=== PATIENT | male | born 1985 | race Caucasian/White ===

== ENCOUNTER 2016-11-19 15:29 | Emergency (ER) | payer MEDICAID ==
[~2016-11-19] VITALS: Ht 188 cm; Wt 95.1 kg
[2016-11-19 15:31] VITALS: BP 127/83
[2016-11-19] MEDS ORDERED: LIDOCAINE 1%, 20ML ONE (15:57)
[2016-11-19] MEDS ORDERED: LIDOCAINE 1%, 20ML SQ ONE (16:00)
== END 2016-11-19 16:25 | disposition home or self-care (01) ==
LOC: ED 16:19
DX: L02.415 Cutaneous abscess of right lower limb (principal)
CPT/HCPCS: 10060

== ENCOUNTER 2017-02-20 18:05 | Emergency (ER) | payer MEDICAID ==
[~2017-02-20] VITALS: Ht 188 cm; Wt 95.0 kg
[2017-02-20 18:09] VITALS: BP 158/82
[2017-02-20] MEDS ORDERED: ONDANSETRON ODT 4 MG ONE (18:54)
[2017-02-20] MEDS ORDERED: ONDANSETRON ODT 4 MG PO ONE (19:00)
== END 2017-02-20 19:04 | disposition home or self-care (01) ==
LOC: ED 18:58
DX: F11.23 Opioid dependence with withdrawal (principal); F17.210 Nicotine dependence, cigarettes, uncomplicated
CPT/HCPCS: 99283; Q0162

== ENCOUNTER 2017-09-27 10:19 | Emergency (ER) | payer MEDICAID ==
[~2017-09-27] VITALS: Ht 188 cm; Wt 88.6 kg
[2017-09-27] MEDS ORDERED: KETOROLAC 30 MG/1 ML ONE (11:05)
[2017-09-27 11:19] LABS: MICROSCOPIC NOT IND
[2017-09-27 11:21] LABS: CULTURE INDICATED? NO
[2017-09-27] MEDS ORDERED: KETOROLAC 60 MG/2 ML IM ONE (11:30)
[2017-09-27] MEDS ORDERED: KETOROLAC 30 MG/1 ML IM ONE (11:30)
[2017-09-27 11:49] LABS: BASOPHILS # (AUTO) 0.02 x10^3/uL (0-0.1); BASOPHILS % (AUTO) 0 % (0-1); EOSINOPHILS # (AUTO) 0.01 x10^3/uL (0-0.4); EOSINOPHILS % (AUTO) 0 % (1-7); LYMPHOCYTES # (AUTO) 0.87 x10^3/uL (1-3.4); LYMPHOCYTES % (AUTO) 11 % (22-44); MD NO; MEAN CORPUSCULAR HEMOGLOBIN 28.1 pg (27.5-34.5); MEAN CORPUSCULAR HGB CONC 33.3 g/dL (33.2-36.2); MEAN CORPUSCULAR VOLUME 84.3 fL (81-97); MONOCYTES # (AUTO) 0.44 x10^3/uL (0.2-0.8); MONOCYTES % (AUTO) 5 % (2-9); NEUTROPHILS # (AUTO) 6.77 x10^3/uL (1.8-6.8); NEUTROPHILS % (AUTO) 84 % (42-75); PLATELET COUNT 345 x10^3/uL (130-400); RED BLOOD COUNT 4.82 x10^6/uL (4.38-5.82); RED CELL DISTRIBUTION WIDTH 14.1 % (9.4-14.8)
[2017-09-27 12:05] VITALS: BP 132/68
== END 2017-09-27 12:07 | disposition home or self-care (01) ==
LOC: ED 12:00
DX: L04.1 Acute lymphadenitis of trunk (principal); R30.0 Dysuria; F17.200 Nicotine dependence, unspecified, uncomplicated
CPT/HCPCS: 36415; 76857; 81003; 85025; 96372; 99285; J1885

== ENCOUNTER 2017-09-30 20:21 | Emergency (ER) | payer MEDICAID ==
[~2017-09-30] VITALS: Ht 188 cm; Wt 90.0 kg
[2017-09-30 20:26] VITALS: BP 139/75
[2017-09-30] MEDS ORDERED: SULFAMETH./TRIMETHOPRIM DS 800MG/160MG TABLET PO ONE (21:00)
[2017-09-30] MEDS ORDERED: OXYcodone/APAP 5/325MG TABLET PO ONE (21:00)
[2017-09-30] MEDS ORDERED: CEFAZOLIN 1,000 MG IM ONE (21:00)
[2017-09-30] MEDS ORDERED: LIDOCAINE 2%, 20ML SQ ONE (21:00)
[2017-09-30] MEDS ORDERED: DIPH,PERTUSS(ACELL),TET VAC/PF 0.5 ML IM-VACC ONE ×2 (21:00→21:23)
[2017-09-30] MEDS ORDERED: OXYcodone/APAP 5/325MG TABLET ONE (21:22)
[2017-09-30] MEDS ORDERED: CEFAZOLIN 1,000 MG ONE (21:22)
[2017-09-30] MEDS ORDERED: SULFAMETH./TRIMETHOPRIM DS 800MG/160MG TABLET ONE (21:22)
[2017-09-30] MEDS ORDERED: LIDOCAINE-MPF 2% ,5ML ONE (21:22)
== END 2017-09-30 22:16 | disposition home or self-care (01) ==
LOC: ED 21:02
DX: L02.416 Cutaneous abscess of left lower limb (principal); F41.9 Anxiety disorder, unspecified
CPT/HCPCS: 10060; 90471; 90715; 96372; 99284; J0690; J3490

== ENCOUNTER 2020-12-07 20:32 | Emergency (ER) | payer MEDICAID ==
[~2020-12-07] VITALS: Ht 188 cm; Wt 109.0 kg
--- NOTE | 2020-12-07 23:32 | NUR ---
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
[2020-12-08] MEDS ORDERED: CLINDAMYCIN 300 MG CAPSULE ONE
[2020-12-08] MEDS ORDERED: CLINDAMYCIN 150 MG CAPSULE PO ONE
[2020-12-08 00:05] VITALS: BP 114/50
--- NOTE | 2020-12-08 00:05 | NUR ---
Patient given discharge instructions and they have confirmed that they understand the instructions. Patient ambulatory with steady gait.
== END 2020-12-08 00:12 | disposition home or self-care (01) ==
LOC: ED 21:02
DX: S00.12XA Contusion of left eyelid and periocular area, initial encounter (principal); S00.83XA Contusion of other part of head, initial encounter; K02.9 Dental caries, unspecified; M54.2 Cervicalgia; K08.89 Other specified disorders of teeth and supporting structures; Y04.0XXA Assault by unarmed brawl or fight, initial encounter; Y93.89 Activity, other specified; Y92.89 Other specified places as the place of occurrence of the external cause; Y99.8 Other external cause status
CPT/HCPCS: 70450; 70486; 72125; 99285